=== PATIENT | male | born 1945 | race Caucasian/White ===

== ENCOUNTER 2025-01-02 09:34 | Outpatient (CLI) | payer MEDICARE, BC ==
[2025-01-02] MEDS ORDERED: Iopamidol 300 61% 100 ML VIAL FS ONE (09:49)
== END 2025-01-02 09:35 | disposition home or self-care (01) ==
LOC: CSHCT 09:34
PROVIDERS: ATTEND Internal Medicine Critical Care Medicine
DX: J43.9 Emphysema, unspecified (principal); R91.8 Other nonspecific abnormal finding of lung field
CPT/HCPCS: 71260